=== PATIENT | female | born 1970 | race Caucasian/White ===

== ENCOUNTER → 2016-11-05 | Outpatient (CLI) | payer BC ==
[~2016-11-05] MED LIST: ACET1TAB25 PO; CEPH-583 PO
--- NOTE | 2016-11-06 08:45 | DI ---
INDICATION: ITS.REASON: R07.89 OTHER CHEST PAIN PROCEDURE: CHEST 2-VIEWS UPRIGHT (PA \T\ LAT) Encounter: Initial COMPARISON: 05/10/2012 FINDINGS: The lungs are clear without evidence of focal abnormal airspace opacity. There is no pleural effusion or pneumothorax. Cholecystectomy clips are present. The heart size, mediastinal contours and pulmonary vascularity are within normal limits. IMPRESSION: No acute cardiopulmonary disease. .
== END ==
LOC: IMA 17:00
PROVIDERS: ATTEND Family Medicine
DX: R07.89 Other chest pain (principal)